=== PATIENT | female | born 1990 ===

== ENCOUNTER 2019-08-10 22:59 | Emergency (ER) | payer SELFPAY ==
[2019-08-11] MEDS ORDERED: HYDROcodone/ACETAMINOPHEN 5-325 MG TAB PO ONE (00:08)
--- NOTE | 2019-08-11 00:24 | Emergency Department Report ---
ED General Adult HPI - General Chief complaint: Skin Rash Stated complaint: POSS INSECT BITE ON RT SIDE Time Seen by Provider: 08/11/19 00:06 Source: patient Mode of arrival: Ambulatory Limitations: No Limitations - History of Present Illness Initial comments: Ms. Ca is a 29-year-old female with history of chickenpox in childhood presents with a rash to her right flank red patche painful to touch, states mild malaise no n/v no fever . symptoms are exacerbated by nothing, symptoms are relieved by nothing. Onset/Timin -: days(s) Location: chest (right flank) Radiation: non-radiation Severity scale (0 -10): 5 Quality: burning, sharp Consistency: constant Improves with: none Worsens with: movement, other (palpation) Associated Symptoms: rash Treatments Prior to Arrival: none - Related Data Previous Rx's Medication Instructions Recorded Last Taken Type HYDROcodone/APAP 5-325 [[place] 1 each PO Q6HR PRN #12 tablet 08/11/19 Unknown Rx 5-325 mg TAB] Lidocaine [Lidocaine Cream] 1 applicatio TP QID PRN #1 tube 08/11/19 Unknown Rx Valacyclovir HCl [Valtrex] 1,000 mg PO BID 10 Days #20 tablet 08/11/19 Unknown Rx Allergies Allergy/AdvReac Type Severity Reaction Status Date / Time No Known Allergies Allergy Verified 08/10/19 23:16 ED Review of Systems ROS: Stated complaint: POSS INSECT BITE ON RT SIDE Other details as noted in HPI Constitutional: malaise. denies: chills, fever Eyes: denies: eye pain, eye discharge, vision change ENT: denies: ear pain, throat pain Respiratory: denies: cough, shortness of breath, wheezing Cardiovascular: denies: chest pain, palpitations Endocrine: no symptoms reported Gastrointestinal: denies: abdominal pain, nausea, diarrhea Genitourinary: denies: urgency, dysuria, discharge Musculoskeletal: other (rash flank right flank ) Skin: denies: rash, lesions Neurological: denies: headache, weakness, paresthesias Psychiatric: denies: anxiety, depression Hematological/Lymphatic: denies: easy bleeding, easy bruising ED Past Medical Hx - Past Medical History Previous Medical History?: No - Surgical History Past Surgical History?: Yes Hx Cholecystectomy: Yes - Social History Smoking Status: Never Smoker Substance Use Type: Alcohol - Medications Home Medications: Home Medications Medication Instructions Recorded Confirmed Last Taken Type HYDROcodone/APAP 5-325 [[place] 1 each PO Q6HR PRN #12 tablet 08/11/19 Unknown Rx 5-325 mg TAB] Lidocaine [Lidocaine Cream] 1 applicatio TP QID PRN #1 tube 08/11/19 Unknown Rx Valacyclovir HCl [Valtrex] 1,000 mg PO BID 10 Days #20 tablet 08/11/19 Unknown Rx ED Physical Exam - General Limitations: No Limitations General appearance: alert, in no apparent distress - Head Head exam: Present: atraumatic, normocephalic - Eye Eye exam: Present: normal appearance - ENT ENT exam: Present: mucous membranes moist - Neck Neck exam: Present: normal inspection - Respiratory Respiratory exam: Present: normal lung sounds bilaterally. Absent: respiratory distress, wheezes, stridor - Cardiovascular Cardiovascular Exam: Present: regular rate, normal rhythm, normal heart sounds. Absent: systolic murmur, diastolic murmur, rubs, gallop - GI/Abdominal GI/Abdominal exam: Present: soft, normal bowel sounds. Absent: tenderness - Rectal Rectal exam: Present: deferred - Extremities Exam Extremities exam: Present: normal inspection, full ROM, normal capillary refill. Absent: tenderness - Back Exam Back exam: Present: normal inspection, full ROM - Neurological Exam Neurological exam: Present: alert, oriented X3, CN II-XII intact, normal gait, reflexes normal. Absent: motor sensory deficit - Expanded Neurological Exam Expanded Patient oriented to: Present: person, place, time Speech: Present: fluid speech Motor strength exam: RUE: 5, LUE: 5, RLE: 5, LLE: 5 Best Eye Response ([place]): (4) open spontaneously Best Motor Response ([place]): (6) obeys commands Best Verbal Response ([place]): (5) oriented [place] Total: 15 - Psychiatric Psychiatric exam: Present: normal affect, normal mood - Skin Skin exam: Present: warm, dry, intact, rash, erythema, urticaria ED Course Vital Signs 08/10/19 23:14 Temperature 98.1 F Pulse Rate 85 Respiratory 18 Rate Blood Pressure 113/77 O2 Sat by Pulse 97 Oximetry ED Medical Decision Making - Medical Decision Making Shingles, plan, valtrex, hydrocodone, lidocaine cream, follow up with primary care doctor in 2-3 days. Critical care attestation.: If time is entered above; I have spent that time in minutes in the direct care of this critically ill patient, excluding procedure time. ED Disposition Clinical Impression: Shingles rash Qualifiers: Herpes zoster complications: without complications Qualified Code(s): B02.9 - Zoster without complications Disposition: TO HOME OR SELFCARE Is pt being admited?: No Does the pt Need Aspirin: No Condition: Stable Instructions: Herpes Zoster (ED) Prescriptions: Lidocaine [Lidocaine Cream] 1 applicatio TP QID PRN #1 tube PRN Reason: pain HYDROcodone/APAP 5-325 [[place] 5-325 mg TAB] 1 each PO Q6HR PRN #12 tablet PRN Reason: Pain Valacyclovir HCl [Valtrex] 1,000 mg PO BID 10 Days #20 tablet Referrals: LINDA WHITFIELD MD [Staff Physician] - 3-5 Days Forms: Work/School Release Form(ED) Time of Disposition: 00:33
[2019-08-11 00:44] VITALS: BP 112/74
[2019-08-11] MEDS ORDERED: LIDOCAINE VISCOUS 2% 15 ML ORAL LIQD MM ONE (00:45)
[2019-08-11] MEDS ORDERED: valACYclovir 500 MG TAB PO ONE (00:49)
== END 2019-08-11 00:43 | disposition home or self-care (01) ==
LOC: ED 22:59
DX: B02.9 Zoster without complications (principal); Z90.49 Acquired absence of other specified parts of digestive tract; Z79.899 Other long term (current) drug therapy